=== PATIENT | male | born 1950 | race Caucasian/White ===

== ENCOUNTER → 2017-11-07 14:57 | Outpatient (CLI) | payer MEDICARE, SELFPAY ==
[2017-11-07 15:50] LABS: Add Manual Diff / Slide Review NO; Basophils Percent Auto 0.6 % (0-2); Hematocrit 41.6 % (41-53); Hemoglobin 13.9 g/dL (13.5-17.5); Lymphocytes Percent Auto 17.4 % (25-40); Mean Corpuscular HGB Conc 33.5 % (30-36); Mean Corpuscular Hemoglobin 31.6 PG (26-34); Mean Corpuscular Volume 94.4 fL (80-100); Monocytes Percent Auto 9.4 % (3-14); Neutrophils Absolute Auto 8500 /uL (3000-5900); Neutrophils Percent Auto 70.6 % (50-75); Platelet Count 207 X10^3/uL (150-400); Red Cell Distribution Width 13.9 % (11.6-14.8)
[2017-11-07 16:05] LABS: Erythrocyte Sedimentation Rate 13 MM/HR (0-15)
[2017-11-07 16:13] LABS: Alanine Aminotransferase 29 IU/L (21-72); Albumin 4.3 g/dL (3.5-5.0); Albumin Globulin Ratio 1.7 (1.0-2.8); Alkaline Phosphatase 71 U/L (38-126); Aspartate Aminotransferase 21 IU/L (17-59); BUN Creatinine Ratio 22.2 (6-22); Bilirubin Total 0.6 mg/dL (0.2-1.3); Blood Urea Nitrogen 20 mg/dL (9-20); C-Reactive Protein Quant 3.6 mg/dL (<1.0); Calcium 9.7 mg/dL (8.4-10.2); Carbon Dioxide 31 mmol/L (22-32); Chloride 101 mmol/L (98-107); Estimated Glomerular Filt Rate > 60.0 mL/min (>60); Globulin 2.5 g/dL (1.7-4.1); Glucose 91 mg/dL (80-110); HEMOLYSIS < 15 (0-50); Potassium 4.5 mmol/L (3.4-5.1); Sodium 142 mmol/L (137-145); Total Protein 6.8 g/dL (6.3-8.2)
== END ==
PROVIDERS: Visit Provider Physician Assistant
DX: L30.9 Dermatitis, unspecified (principal)
CPT/HCPCS: 36415; 80053; 85025; 85651; 86140

== ENCOUNTER → 2017-11-08 17:55 | Outpatient (REF) | payer MEDICARE, SELFPAY | LOC: LAB 17:55 | PROVIDERS: Visit Provider Dermatology | DX: Z79.899 Other long term (current) drug therapy (principal); Z71.89 Other specified counseling; L30.9 Dermatitis, unspecified; D49.2 Neoplasm of unspecified behavior of bone, soft tissue, and skin | CPT/HCPCS: 87070; 87075; 87205 ==